=== PATIENT | male | born 1960 | race Caucasian/White ===

== ENCOUNTER 2021-07-28 09:17 | Outpatient (CLI) | payer BC, SELFPAY ==
[2021-07-28 10:42] LABS: Anion Gap 7 mmol/L (8-16); Blood Urea Nitrogen 14 mg/dL (9-20); Calcium 9.5 mg/dL (8.4-10.2); Carbon Dioxide 31 mmol/L (22-30); Chloride 103 mmol/L (98-107); Estimated Glomerular Filt Rate > 60; Glucose 131 mg/dL (65-110); Potassium 3.5 mmol/L (3.4-5.0); Sodium 141 mmol/L (137-145)
== END 2021-07-28 09:18 | disposition home or self-care (01) ==
LOC: ANHSURGERY 09:22
PROVIDERS: Anesthesiology; PCP Internal Medicine; Visit Provider Otolaryngology
DX: E11.9 Type 2 diabetes mellitus without complications (principal); Z01.818 Encounter for other preprocedural examination
CPT/HCPCS: 36415; 80048

== ENCOUNTER 2021-07-30 02:10 | Day surgery (SDC) | payer BC, SELFPAY ==
[2021-07-22 14:56] VITALS: BMI 33.2
--- NOTE | 2021-07-28 06:26 | PM.HPGS ---
History of Present Illness History of Present Illness Consent: Risks, benefits, and alternatives have been discussed and questions answered. Patient agrees to proceed with procedure. Chief complaint: nasal septal deviation, turbinate hypertrophy Narrative: Asher Tellez is a 61 year old male with nasal obstruction difficulty sleeping he has been unresponsive to medical management Review of Systems Review of Systems: All systems reviewed & are unremarkable except as noted in HPI and below PMFSH Family History Family History Sibling Hypertension Patient's brother is in good health Mother Hypertension, Onset Age: 77 Family history of diabetes mellitus in first degree relative Father Family history of lung cancer Social History Social History Smoking status: Never smoker Second hand tobacco smoke exposure: No Alcohol intake: current Alcohol use details: 2/MONTH Substance use: never Substance use type: does not use Spiritual care concerns: No Meds Home Medications and Allergies Home Medications Medication Instructions Recorded Confirmed Type diltiazem HCl 240 mg 240 mg PO DAILY #90 cap 03/09/21 07/22/21 Rx capsule,extended release 24 hr aspirin 81 mg tablet,delayed 81 mg PO DAILY 03/10/21 07/22/21 History release dapagliflozin 10 mg tablet 10 mg PO DAILY #90 tablet 03/10/21 07/22/21 Rx tamsulosin 0.4 mg capsule 0.4 mg PO DAILY #90 cap 03/10/21 07/22/21 Rx metformin 500 mg tablet,extended 1,000 mg PO BID #360 tablet 03/25/21 07/22/21 Rx release 24 hr azelastine 137 mcg (0.1 %) nasal 1 spray INTRANASAL Q12H #30 ml 06/11/21 07/22/21 Rx spray aerosol fluticasone propionate 50 1 spray INTRANASAL BID #16 ml 06/11/21 07/22/21 Rx mcg/actuation nasal spray,suspension lisinopril 40 mg tablet 40 mg PO DAILY #90 tablet 06/17/21 07/22/21 Rx Allergies Allergy/AdvReac Type Severity Reaction Status Date / Time No Known Allergies Allergy Verified 07/22/21 14:53 Exam Narrative: chest clear heart rhythm murmurs abdomen softer negative septum deviated left with turbinate hypertrophy on both sides Assessment and Plan Additional Plan plan septoplasty and bilateral inferior turbinectomy
[2021-07-30] VITALS (7 sets, daily range): BP systolic 148–174; BP diastolic 76–99; PULSE 63–83; RESP 16–18; TEMP 36.2–36.9; O2SAT 94–98; BMI 33.2
--- NOTE | 2021-07-30 06:10 | WPDHPUPDATE1 ---
History and Physical Update Update Date/Time: 07/30/21 06:10 History and Physical has been reviewed, including an updated exam of the patient. There are NO changes in the patient's condition. Risks, benefits, and alternatives have been discussed and questions answered. Patient agrees to proceed with procedure.
[2021-07-30] MEDS: ACETAMINOPHEN 500 MG TABLET 1000 MG PO (08:23)
--- NOTE | 2021-07-30 08:34 | WPDANESEPPF ---
Anes - Initial Pre Proc Eval Procedure: Operation Date: 07/30/21 10:00 Proposed Procedures p Septoplasty - Zach Rodriguez MD s Bilateral Inferior Turbinectomy - Zach Rodriguez MD Date/Time: 07/30/21 08:34 Surgeon: Zach Rodriguez MD Pre Op Diagnosis: nasal septal deviation, turbinate hypertrophy Patient Data Age: 61 Gender: M Height: 1.8 m Weight: 108 kg Last Vital Signs Temp 36.2 C L 07/30/21 08:26 Pulse 66 07/30/21 08:26 Resp 18 07/30/21 08:26 BP 174/96 H 07/30/21 08:26 Pulse Ox 98 07/30/21 08:26 Allergies Allergy/AdvReac Type Severity Reaction Status Date / Time No Known Allergies Allergy Verified 07/30/21 08:18 Home Medications Medication Instructions Recorded Confirmed Type diltiazem HCl 240 mg 240 mg PO DAILY #90 cap 03/09/21 07/30/21 Rx capsule,extended release 24 hr aspirin 81 mg tablet,delayed 81 mg PO DAILY 03/10/21 07/30/21 History release dapagliflozin 10 mg tablet 10 mg PO DAILY #90 tablet 03/10/21 07/30/21 Rx tamsulosin 0.4 mg capsule 0.4 mg PO DAILY #90 cap 03/10/21 07/30/21 Rx metformin 500 mg tablet,extended 1,000 mg PO BID #360 tablet 03/25/21 07/30/21 Rx release 24 hr azelastine 137 mcg (0.1 %) nasal 1 spray INTRANASAL Q12H #30 ml 06/11/21 07/30/21 Rx spray aerosol fluticasone propionate 50 1 spray INTRANASAL BID #16 ml 06/11/21 07/30/21 Rx mcg/actuation nasal spray,suspension lisinopril 40 mg tablet 40 mg PO DAILY #90 tablet 06/17/21 07/30/21 Rx Patient hx anesthesia problems: none Family hx anesthesia problems: none Results Review: All pre-operative results and documents have been reviewed as part of the pre-operative evaluation. [facility] Past Medical History Medical History (Updated 07/30/21 @ 08:37 by Nathan Rhodes MD) Paroxysmal atrial fibrillation Pure hypercholesterolemia, unspecified Type 2 diabetes mellitus Family History Family History Sibling Hypertension Patient's brother is in good health Mother Hypertension, Onset Age: 77 Family history of diabetes mellitus in first degree relative Father Family history of lung cancer Social History Social History Smoking status: Never smoker Second hand tobacco smoke exposure: No Alcohol intake: current Alcohol use details: 2/MONTH Substance use: never Substance use type: does not use Living arrangements: with family Spiritual care concerns: No Anes - Eval Final PreProcedure Day of Procedure 07/30/21 08:34 Patient weight: obese Heart: regular rate and rhythm Lungs: clear to auscultation Airway: Mallampati scale class II Neurological: alert and oriented Last oral intake: >/= 8 hours ASA classification: III Emergent: no Anesthetic plan: proceed Anesthesia type and monitoring: general ETT and standard monitoring Results Review: All pre-operative results and documents have been reviewed as part of the pre-operative evaluation. Informed Consent: The patient's anesthetic plan and its attendant risks and benefits were discussed with the patient/family/POA. Questions were solicited and answers provided to the satisfaction of the patient/family/POA.
[2021-07-30] MEDS: LACTATED RINGERS 1,000 ML 30 ML IV CONT (08:41)
[2021-07-30 08:45] LABS: Glucose Point of Care 138 mg/dl (65-105)
[2021-07-30] MEDS: LIDO 1%/EPINEPHRINE 1:100,000 50 ML VIAL INFILTRATE (10:09)
[2021-07-30] MEDS: COCAINE HCL (*CRX) 4% TOP SOLN 4 ML VIAL 1 APPLIC TOPICAL (10:10)
--- NOTE | 2021-07-30 10:39 | W.PM.PROC2 ---
Procedure Note - Detailed Date of Procedure 07/30/21 Pre-op Diagnosis nasal septal deviation, turbinate hypertrophy Post-op Diagnosis same Procedure Performed Septoplasty bilateral inferior turbinectomy Surgeon Zach Rodriguez MD Description of Procedure Patient was prepped and draped general anesthesia after placement of 4% cocaine cottonoids in both sides of the nose the septum was injected with xylocaine with adrenaline a left luis angel transfix incision was made anterior and posterior tunnels elevated the bony cartilaginous junction was a marked amount of redundancy of the bony deviation this was removed this swelling the cartilage bony remnants of the midline both inferior turbinates were reduced in size a stab wound with a micro debrider 4-0 chromic used to suture the luis angel transection incision and Gonzalez splints sutured with 2-0 silk patient awakened returned to recovery in good condition
[2021-07-30 10:51] LABS: Glucose Point of Care 156 mg/dl (65-105)
== END 2021-07-30 12:28 | disposition home or self-care (01) ==
PROVIDERS: PCP Internal Medicine; Visit Provider Otolaryngology
PROC: (CPT 30520; principal; 2021-07-30 10:00)
PROC: (CPT 30140; 2021-07-30 10:00)
DX: J34.2 Deviated nasal septum (principal); J34.3 Hypertrophy of nasal turbinates; I48.0 Paroxysmal atrial fibrillation; E78.00 Pure hypercholesterolemia, unspecified; E11.9 Type 2 diabetes mellitus without complications; E66.9 Obesity, unspecified; Z68.33 Body mass index [BMI] 33.0-33.9, adult; Z79.82 Long term (current) use of aspirin; Z79.84 Long term (current) use of oral hypoglycemic drugs
CPT/HCPCS: 30140; 30520; 36415; 80048; 82948; A9270; J0330; J1100; J2250; J2405; J2704; J3010; J7120

== ENCOUNTER 2022-05-21 11:26 | Outpatient (CLI) | payer BC, SELFPAY ==
--- NOTE | 2022-05-21 11:36 | ECG_ITS ---
Measurements Intervals [place] Rate: 69 P: 25 OR: 226 QRS: -34 QRSD: 112 T: 64 QT: 395 QTc: 425 Interpretive Statements SINUS RHYTHM WITH FIRST-DEGREE AV BLOCK VOLTAGE EVIDENCE OF LEFT VENTRICULAR HYPERTROPHY LEFTWARD AXIS ABNORMAL ECG NO PREVIOUS ECG AVAILABLE FOR COMPARISON Electronically Signed On 05-21-2022 16:29:22 CDT by William Allison M.D.
[2022-05-21 12:21] LABS: Anion Gap 12 mmol/L (8-16); Blood Urea Nitrogen 18 mg/dL (9-20); Calcium 9.7 mg/dL (8.4-10.2); Carbon Dioxide 25 mmol/L (22-30); Chloride 99 mmol/L (98-107); Estimated Glomerular Filt Rate > 60; Glucose 142 mg/dL (65-110); Potassium 4.2 mmol/L (3.4-5.0); Sodium 136 mmol/L (137-145)
== END 2022-05-21 11:27 | disposition home or self-care (01) ==
PROVIDERS: Anesthesiology; PCP Internal Medicine; Visit Provider Urology
DX: I48.0 Paroxysmal atrial fibrillation (principal); E11.9 Type 2 diabetes mellitus without complications; I44.0 Atrioventricular block, first degree
CPT/HCPCS: 36415; 80048; 93005

== ENCOUNTER 2022-06-01 02:17 | Day surgery (SDC) | payer BC, SELFPAY ==
[2022-05-20 08:51] VITALS: BMI 34.3
--- NOTE | 2022-05-20 08:55 | PC.NURSE ---
Report to the Outpatient Waiting Room, entrance under the green pavilion located off [facility], at time _1000_ on date _[id number]_. OR Time: _1200_. - You and your visitor will be asked a series of questions to screen for COVID 19 for your protection. - Only one visitor is allowed at this time. - The patient visitor is requested to leave or wait in car when not with patient. - A mask is required within the hospital. Patients may have clear liquids (water, carbonated beverages, clear teas, apple juice) until 3 hours prior to surgery with a maximum of 20 ounces. - No food from midnight until time of surgery Take the following medications with a SIP of water the morning of surgery: _Diltiazem Medications to discontinue per physician ____None Date to take last dose Please no make-up, nail sinhala, hairspray, perfume, deodorant, or body powder the day of surgery. No jewelry (including any body piercings) or valuables the day of surgery, leave them at home. Please take a shower or bath the night before, or the morning of, surgery with an antibacterial soap. Wear comfortable, loose fitting clothing. - Jewelry must be removed prior to entering the operating room. Rings and piercings that are not removed may be cut off. - The hospital will not accept responsibility for valuables. - Please leave all valuables, including medications, at home the day of surgery. If you are going home after surgery, a licensed refrigerated national truck driver must drive you home. - NO public transportation without another adult. - We recommend that an adult stay with you for 24 hours following discharge. - We also recommend that you do not drive, make important decision, drink alcoholic beverages, or take any drugs that were not prescribed by your health care provider for at least 24 hours after your discharge time. Follow any additional instructions given to you from your surgeon. If you or anyone in your household have experienced Covid symptoms in the past week, please notify your surgeon or the nurse liaison at the phone number below for possible testing. Telephone instructions given to _Patient___and asked if any additional questions and then verbalized understanding. Patient advised to call surgeon office or pre surgery nurse liaison [phone] if any additional questions.
--- NOTE | 2022-05-20 16:40 | SUR.PREOP ---
Report to the Outpatient Waiting Room, entrance under the green pavilion located off [facility], at time 0830 on date 06/01/22. OR Time: 1030. - You and your visitor will be asked a series of questions to screen for COVID 19 for your protection. - Only one visitor is allowed at this time. - The patient visitor is requested to leave or wait in car when not with patient. - A mask is required within the hospital. Patients may have clear liquids (water, carbonated beverages, clear teas, apple juice) until 3 hours prior to surgery with a maximum of 20 ounces. - NO CLEAR LIQUIDS AFTER 0730 - No food from midnight until time of surgery - Infants may have breast milk until 4 hours before surgery, infant formula 6 hours prior to surgery. - Children will be allowed to drink immediately following surgery. If applicable, please bring a bottle or sippy cup to assist with drinking. Juice, water, soda, and popsicles are readily available. For infants on formula, please bring formula the day of surgery. Pacifiers are allowed. Take the following medications with a SIP of water the morning of surgery: DILTIAZEM Please no make-up, nail slovak, hairspray, perfume, deodorant, or body powder the day of surgery. No jewelry (including any body piercings) or valuables the day of surgery, leave them at home. Please take a shower or bath the night before, or the morning of, surgery with an antibacterial soap. Wear comfortable, loose fitting clothing. Children are encouraged to wear pajamas. - Jewelry must be removed prior to entering the operating room. Rings and piercings that are not removed may be cut off. - The hospital will not accept responsibility for valuables. - Please leave all valuables, including medications, at home the day of surgery. If you are going home after surgery, a licensed regional dedicated truck driver must drive you home. - NO public transportation without another adult. - We recommend that an adult stay with you for 24 hours following discharge. - We also recommend that you do not drive, make important decision, drink alcoholic beverages, or take any drugs that were not prescribed by your health care provider for at least 24 hours after your discharge time. For Pediatric surgeries, we recommend two adults accompany the child home (only one inside the building at this time). Follow any additional instructions given to you from your surgeon. If you or anyone in your household have experienced Covid symptoms in the past week, please notify your surgeon or the nurse liaison at the phone number below for possible testing. Telephone instructions given to FITO GOODMAN and asked if any additional questions and then verbalized understanding. Patient advised to call surgeon office or pre surgery nurse liaison [phone] if any additional questions.
[2022-06-01] VITALS (8 sets, daily range): BP systolic 118–167; BP diastolic 66–86; PULSE 54–67; RESP 10–18; TEMP 36.1–36.6; O2SAT 100
--- NOTE | 2022-06-01 07:15 | P.PNAN_ITS ---
Anes - Initial Pre Proc Eval Procedure: Operation Date: 06/01/22 10:30 Proposed Procedures p Left Hydrocelectomy, Spermatocelectomy - Madi Reese MD s Orchiopexy - Madi eRese MD Date/Time: 06/01/22 07:15 Surgeon: Madi Reese MD Pre Op Diagnosis: Left Hydrocele, Spermatocele Patient Data Age: 61 Gender: M Height: 1.8 m Weight: 111.8 kg Allergies Allergy/AdvReac Type Severity Reaction Status Date / Time No Known Allergies Allergy Verified 06/01/22 08:54 Home Medications Medication Instructions Recorded Confirmed Type aspirin 81 mg tablet,delayed 81 mg PO DAILY 03/10/21 06/01/22 History release (Adult Aspirin Regimen) acetaminophen 300 mg-codeine 30 mg 1 tablet PO Q6H PRN pain #20 tabs 07/30/21 05/20/22 Rx tablet lisinopril 40 mg tablet 40 mg PO DAILY #90 tabs 12/29/21 06/01/22 Rx diltiazem HCl 240 mg 240 mg PO DAILY #90 caps 02/27/22 06/01/22 Rx capsule,extended release 24 hr (Cardizem CD) dapagliflozin 10 mg tablet 10 mg PO DAILY #90 tabs 03/05/22 06/01/22 Rx (Farxiga) metformin 500 mg tablet,extended 500 mg PO BID 05/20/22 06/01/22 History release 24 hr tamsulosin 0.4 mg capsule 0.4 mg PO DAILY 05/20/22 06/01/22 History Patient hx anesthesia problems: none Family hx anesthesia problems: none Results Review: All pre-operative results and documents have been reviewed as part of the pre- operative evaluation. [facility] Past Medical History Medical History Paroxysmal atrial fibrillation Pure hypercholesterolemia, unspecified Type 2 diabetes mellitus Family History Family History Sibling Hypertension Patient's brother is in good health Mother Hypertension, Onset Age: 77 Family history of diabetes mellitus in first degree relative Father Family history of lung cancer Social History Social History Smoking status: Never smoker Second hand tobacco smoke exposure: No Alcohol intake: former Alcohol use details: 2/MONTH Substance use: never Substance use type: does not use Living arrangements: with family Gender identity (if verbalized by the patient): Male Sexual Orientation (if Verbalized by the Patient): Straight or Heterosexual Spiritual care concerns: No Anes - Eval Final PreProcedure Day of Procedure 06/01/22 07:15 Patient weight: obese Heart: regular rate and rhythm Lungs: clear to auscultation Airway: Mallampati scale class II Neurological: alert and oriented Last oral intake: >/= 8 hours ASA classification: III Emergent: no Anesthetic plan: proceed Anesthesia type and monitoring: general LMA and standard monitoring Results Review: All pre-operative results and documents have been reviewed as part of the pre- operative evaluation. Informed Consent: The patient's anesthetic plan and its attendant risks and benefits were discussed with the patient/family/POA. Questions were solicited and answers provided to the satisfaction of the patient/family/POA.
--- NOTE | 2022-06-01 07:50 | WPDHPUPDATE1 ---
History and Physical Update Update Date/Time: 06/01/22 07:50 History and Physical has been reviewed, including an updated exam of the patient. There are NO changes in the patient's condition. Risks, benefits, and alternatives have been discussed and questions answered. Patient agrees to proceed with procedure.
[2022-06-01] MEDS: LACTATED RINGERS 1,000 ML 30 ML IV CONT ×2 (09:05→11:44)
[2022-06-01 09:09] LABS: Glucose Point of Care 179 mg/dl (65-105)
[2022-06-01] MEDS: ceFAZolin 2 GM/D5W 50 ML 2 GM/50 ML BAG IVPB (10:16)
[2022-06-01] MEDS: BUPIVACAINE HCL 0.5% PF 30 ML VIAL INFILTRATE (10:46)
--- NOTE | 2022-06-01 11:39 | P.OP_ITS ---
Procedure Note - Detailed Date of Procedure 06/01/22 Pre-op Diagnosis Left Hydrocele, Spermatocele Post-op Diagnosis Same Procedure Performed Left hydrocelectomy, left spermatocelectomy, left orchiopexy Surgeon Madi Reese MD Anesthesia General Findings Large left hydrocele with additional large left spermatocele Description of Procedure Patient is taken to the operative suite correctly identified. Once anesthesia was obtained he was prepped and draped usual sterile fashion. A left hemiscrotal incision was made carried down through the tunical layers. The hydrocele and spermatocele was brought into the operative field. We opened up the left hydrocele and drained straw colored fluid. We excised the excess tissue and fulgurated the issues. He had a large spermatocele in addition. We dissected this down to its origination. I placed a hemostat across the base and then ligated this. Specimens were sent for analysis. There appeared to be good hemostasis at termination of this portion the procedure. We then performed an orchiopexy with securing the testicle at 3 points medially laterally and inferiorly. This was done using 3-0 Ethibond. Quarter-inch [place] drain was placed through the separate stab incision and secured using 3-0 chromic. I anesthetized the skin incision using bupivacaine. 3-0 chromic was used to close the tunica layer. Skin was closed using 3-0 chromic in a running fashion. Patient tolerated procedure well without complications and was taken recovery stable condition. He can remove the drain in 2 days if minimal drainage. He will follow-up in a couple of weeks. Estimated Blood Loss 10 Drains Yes Packing No Pathology Yes Complications No immediate complications Condition Stable Disposition PACU
[2022-06-01 11:51] LABS: Glucose Point of Care 177 mg/dl (65-105)
[2022-06-01] MEDS: fentaNYL CITRATE INJ (*CRX) 100 MCG/2 ML VIAL 25 MCG IV PUSH ×8 (12:02→13:15)
[2022-06-01] MEDS: oxyCODONE HCL (*CRX) 5 MG TAB IR PO (13:03)
== END 2022-06-01 13:40 | disposition home or self-care (01) ==
PROVIDERS: PCP Internal Medicine; Visit Provider Urology
PROC: (CPT 55040; principal; 2022-06-01 10:30)
PROC: (CPT 54520; 2022-06-01 10:30)
DX: N43.3 Hydrocele, unspecified (principal); N43.41 Spermatocele of epididymis, single; I48.0 Paroxysmal atrial fibrillation; E78.00 Pure hypercholesterolemia, unspecified; E11.9 Type 2 diabetes mellitus without complications; E66.9 Obesity, unspecified; Z68.33 Body mass index [BMI] 33.0-33.9, adult; Z79.82 Long term (current) use of aspirin; Z79.84 Long term (current) use of oral hypoglycemic drugs
CPT/HCPCS: 55040; 54640; 82948; 88302; 88304; A9270; J0690; J1100; J2405; J2704; J3010; J7120

== ENCOUNTER 2022-07-29 03:46 | Day surgery (SDC) | payer BC, SELFPAY ==
[2022-07-16 10:01] VITALS: BMI 32.8
[2022-07-29 06:23] VITALS: BP 174/100; PULSE 64; RESP 20; TEMP 36.4; O2SAT 99
[2022-07-29] MEDS: LACTATED RINGERS 1,000 ML 150 ML IV CONT (06:37)
[2022-07-29 07:06] LABS: Glucose Point of Care 134 mg/dl (65-105)
--- NOTE | 2022-07-29 07:22 | WPDANESEPPF ---
Anes - Initial Pre Proc Eval Procedure: Operation Date: 07/29/22 07:30 Proposed Procedures p Screening Colonoscopy - Ata Burt MD Date/Time: 07/29/22 07:22 Surgeon: Ata Burt MD Pre Op Diagnosis: neoplasm screening Patient Data Age: 62 Gender: M Height: 1.8 m Weight: 105.7 kg Last Vital Signs Temp 97.5 F L 07/29/22 06:23 Pulse 64 07/29/22 06:23 Resp 20 07/29/22 06:23 BP 174/100 H 07/29/22 06:23 Pulse Ox 99 07/29/22 06:23 O2 Del Method Room Air 07/29/22 06:23 Allergies Allergy/AdvReac Type Severity Reaction Status Date / Time No Known Allergies Allergy Verified 07/29/22 06:22 Home Medications Medication Instructions Recorded Confirmed Type acetaminophen 300 mg-codeine 30 mg 1 tablet PO Q6H PRN pain #20 tabs 07/30/21 05/20/22 Rx tablet diltiazem HCl 240 mg 240 mg PO DAILY #90 caps 02/27/22 07/16/22 Rx capsule,extended release 24 hr (Cardizem CD) dapagliflozin 10 mg tablet 10 mg PO DAILY #90 tabs 03/05/22 07/16/22 Rx (Farxiga) lisinopril 40 mg tablet 40 mg PO DAILY #90 tabs 06/22/22 07/29/22 Rx metformin 500 mg tablet,extended 500 mg PO BID 07/16/22 07/16/22 History release 24 hr Laboratory Tests 07/29/22 06:29 POC Capillary Glucose 134 mg/dl H mg/dl (65-105) Patient hx anesthesia problems: none Family hx anesthesia problems: none Results Review: All pre-operative results and documents have been reviewed as part of the pre-operative evaluation. [facility] Past Medical History Medical History Paroxysmal atrial fibrillation Pure hypercholesterolemia, unspecified Type 2 diabetes mellitus Family History Family History Sibling Hypertension Patient's brother is in good health Mother Hypertension, Onset Age: 77 Family history of diabetes mellitus in first degree relative Father Family history of lung cancer Social History Social History (Reviewed 04/28/22 @ 14:33 by JANA Tenorio Smoking status: Never smoker Second hand tobacco smoke exposure: No Alcohol intake: former Alcohol use details: 2/MONTH Substance use: never Substance use type: does not use Living arrangements: with family Gender identity (if verbalized by the patient): Male Sexual Orientation (if Verbalized by the Patient): Straight or Heterosexual Spiritual care concerns: No Anes - Eval Final PreProcedure Day of Procedure 07/29/22 07:22 Patient weight: normal Heart: regular rate and rhythm Lungs: clear to auscultation Airway: Mallampati scale class II Neurological: alert and oriented Last oral intake: >/= 8 hours ASA classification: III Emergent: no Anesthetic plan: proceed Anesthesia type and monitoring: general GIVS and standard monitoring Results Review: All pre-operative results and documents have been reviewed as part of the pre-operative evaluation. Informed Consent: The patient's anesthetic plan and its attendant risks and benefits were discussed with the patient/family/POA. Questions were solicited and answers provided to the satisfaction of the patient/family/POA.
--- NOTE | 2022-07-29 07:31 | PM.HPGS ---
History of Present Illness History of Present Illness Consent: Risks, benefits, and alternatives have been discussed and questions answered. Patient agrees to proceed with procedure. Chief complaint: neoplasm screening Narrative: Asher Tellez is a 62 year old male Presents for screening colonoscopy. Patient's current weight appetite and bowel movements are normal. He denies abdominal pain. He has had no bleeding. Family history is noncontributory. Previous colonoscopy 11 years ago was unremarkable. Patient presents today for screening exam. Review of Systems Review of Systems: Review of systems noncontributory. [facility] Past Medical History Medical History Paroxysmal atrial fibrillation Pure hypercholesterolemia, unspecified Type 2 diabetes mellitus Family History Family History Sibling Hypertension Patient's brother is in good health Mother Hypertension, Onset Age: 77 Family history of diabetes mellitus in first degree relative Father Family history of lung cancer Social History Social History Smoking status: Never smoker Second hand tobacco smoke exposure: No Alcohol intake: former Alcohol use details: 2/MONTH Substance use: never Substance use type: does not use Living arrangements: with family Gender identity (if verbalized by the patient): Male Sexual Orientation (if Verbalized by the Patient): Straight or Heterosexual Spiritual care concerns: No Meds Home Medications and Allergies Home Medications Medication Instructions Recorded Confirmed Type acetaminophen 300 mg-codeine 30 mg 1 tablet PO Q6H PRN pain #20 tabs 07/30/21 05/20/22 Rx tablet diltiazem HCl 240 mg 240 mg PO DAILY #90 caps 02/27/22 07/16/22 Rx capsule,extended release 24 hr (Cardizem CD) dapagliflozin 10 mg tablet 10 mg PO DAILY #90 tabs 03/05/22 07/16/22 Rx (Farxiga) lisinopril 40 mg tablet 40 mg PO DAILY #90 tabs 06/22/22 07/29/22 Rx metformin 500 mg tablet,extended 500 mg PO BID 07/16/22 07/16/22 History release 24 hr Allergies Allergy/AdvReac Type Severity Reaction Status Date / Time No Known Allergies Allergy Verified 07/29/22 06:22 Vital Signs Vital Signs - 24 hr 07/29/22 06:23 Temperature 97.5 F L Pulse Rate 64 Respiratory Rate 20 Blood Pressure 174/100 H Pulse Oximetry 99 Oxygen Delivery Room Air Exam Narrative: Physical exam reveals patient to be alert. Vital signs stable. HEENT exam is unremarkable. Patient is anicteric. Lungs are clear to auscultation and percussion. Heart is without murmur or extra sounds. Abdomen bowel sounds are present soft nontender with no organomegaly. Digital external rectal exam is normal. Assessment and Plan Assessment and plan (1) Encounter for screening colonoscopy: Code(s): Z12.11 - Encounter for screening for malignant neoplasm of colon Status: Acute Assessment and Plan: Patient presents for screening colonoscopy. Appears to be at average risk for colon polyps. Further recommendations will be given after endoscopy.
--- NOTE | 2022-07-29 07:38 | WPDANESEPPF ---
Anes - Initial Pre Proc Eval Procedure: Operation Date: 07/29/22 07:30 Proposed Procedures p Screening Colonoscopy - Ata Burt MD Date/Time: 07/29/22 07:38 Surgeon: Ata Burt MD Pre Op Diagnosis: neoplasm screening Patient Data Age: 62 Gender: M Height: 1.8 m Weight: 105.7 kg Last Vital Signs Temp 97.5 F L 07/29/22 06:23 Pulse 64 07/29/22 06:23 Resp 20 07/29/22 06:23 BP 174/100 H 07/29/22 06:23 Pulse Ox 99 07/29/22 06:23 O2 Del Method Room Air 07/29/22 06:23 Allergies Allergy/AdvReac Type Severity Reaction Status Date / Time No Known Allergies Allergy Verified 07/29/22 06:22 Home Medications Medication Instructions Recorded Confirmed Type acetaminophen 300 mg-codeine 30 mg 1 tablet PO Q6H PRN pain #20 tabs 07/30/21 05/20/22 Rx tablet diltiazem HCl 240 mg 240 mg PO DAILY #90 caps 02/27/22 07/16/22 Rx capsule,extended release 24 hr (Cardizem CD) dapagliflozin 10 mg tablet 10 mg PO DAILY #90 tabs 03/05/22 07/16/22 Rx (Farxiga) lisinopril 40 mg tablet 40 mg PO DAILY #90 tabs 06/22/22 07/29/22 Rx metformin 500 mg tablet,extended 500 mg PO BID 07/16/22 07/16/22 History release 24 hr Laboratory Tests 07/29/22 06:29 POC Capillary Glucose 134 mg/dl H mg/dl (65-105) Patient hx anesthesia problems: none Family hx anesthesia problems: none Results Review: All pre-operative results and documents have been reviewed as part of the pre-operative evaluation. [facility] Past Medical History Medical History Paroxysmal atrial fibrillation Pure hypercholesterolemia, unspecified Type 2 diabetes mellitus Family History Family History Sibling Hypertension Patient's brother is in good health Mother Hypertension, Onset Age: 77 Family history of diabetes mellitus in first degree relative Father Family history of lung cancer Social History Social History (Reviewed 04/28/22 @ 14:33 by JANA Tenorio Smoking status: Never smoker Second hand tobacco smoke exposure: No Alcohol intake: former Alcohol use details: 2/MONTH Substance use: never Substance use type: does not use Living arrangements: with family Gender identity (if verbalized by the patient): Male Sexual Orientation (if Verbalized by the Patient): Straight or Heterosexual Spiritual care concerns: No Anes - Eval Final PreProcedure Day of Procedure 07/29/22 07:38 Patient weight: normal Heart: regular rate and rhythm Lungs: clear to auscultation Airway: Mallampati scale class II Neurological: alert and oriented Last oral intake: >/= 8 hours ASA classification: III Emergent: no Anesthetic plan: proceed Anesthesia type and monitoring: general GIVS and standard monitoring Results Review: All pre-operative results and documents have been reviewed as part of the pre-operative evaluation. Informed Consent: The patient's anesthetic plan and its attendant risks and benefits were discussed with the patient/family/POA. Questions were solicited and answers provided to the satisfaction of the patient/family/POA.
[2022-07-29] MEDS: SIMETHICONE ORAL SUSPENSION 20 MG/0.3 ML 30 ML BOTTLE 0.6 ML IRRIGATION (07:42)
[2022-07-29 07:52] VITALS: BP 156/100; PULSE 59; RESP 23; O2SAT 100
[2022-07-29 08:02] VITALS: BP 168/103; PULSE 60; RESP 21; O2SAT 100
--- NOTE | 2022-07-29 08:05 | SUR.PHASEI ---
Patient's blood pressure running above normal limits during post op recovery (see flow sheet). Informed Dr. Jarvis CRNA. No new orders at this time. Patient states he took BP med this morning and will be seeing a specialist for his BP at the end of the month. No new orders at this time. OK to d/c per Dr. Conley. Educated patient on importance of following up with his primary care/specialist on this issue.
[2022-07-29 08:12] VITALS: BP 171/105; PULSE 60; RESP 20; O2SAT 100
== END 2022-07-29 08:20 | disposition home or self-care (01) ==
PROVIDERS: PCP Internal Medicine; Visit Provider Internal Medicine Gastroenterology
PROC: 0DJD8ZZ Inspection of Lower Intestinal Tract, Via Natural or Artificial Opening Endoscopic (ICD-10-PCS; CPT 45378; principal; 2022-07-29 07:30)
DX: Z12.11 Encounter for screening for malignant neoplasm of colon (principal); K64.8 Other hemorrhoids; I48.0 Paroxysmal atrial fibrillation; E78.00 Pure hypercholesterolemia, unspecified; E11.9 Type 2 diabetes mellitus without complications; Z79.84 Long term (current) use of oral hypoglycemic drugs
CPT/HCPCS: 45378; 82948; J2704; J7120

== ENCOUNTER 2023-11-10 13:43 | Outpatient (CLI) | payer BC, SELFPAY ==
--- NOTE | 2023-11-10 13:55 | ECG_ITS ---
Measurements Intervals [place] Rate: 59 P: 25 CO: 251 QRS: -40 QRSD: 119 T: 58 QT: 455 QTc: 454 Interpretive Statements SINUS BRADYCARDIA WITH FIRST DEGREE AV BLOCK LEFT AXIS DEVIATION INTRAVENTRICULAR CONDUCTION DELAY LEFT VENTRICULAR HYPERTROPHY WITH ST-T CHANGE NONSPECIFIC T-WAVE ABNORMALITY- ANTEROLATERAL LEADS BORDERLINE ECG COMPARED TO ECG 05/21/2022 11:57:48 SINUS BRADYCARDIA NOW PRESENT T-WAVE ABNORMALITY NOW PRESENT Electronically Signed On 11-10-2023 14:39:16 [employer] by [place] D.O.
== END 2023-11-10 13:44 | disposition home or self-care (01) ==
LOC: ANHCARD 13:45
PROVIDERS: PCP Internal Medicine; Visit Provider Internal Medicine
DX: Z01.810 Encounter for preprocedural cardiovascular examination (principal); I44.0 Atrioventricular block, first degree; I45.9 Conduction disorder, unspecified
CPT/HCPCS: 93005